=== PATIENT | female | born 1950 | race Caucasian/White ===

== ENCOUNTER 2023-10-05 10:46 | Emergency (ER) | payer OTHER, MEDICARE, SELFPAY ==
[2023-10-05] VITALS (7 sets, daily range): BP systolic 150–182; BP diastolic 73–107; PULSE 55–65; RESP 12–18; TEMP 36.4; O2SAT 98–100; BMI 22.8
[2023-10-05] MEDS: predniSONE 20 MG TABLET 40 MG PO (11:41)
--- NOTE | 2023-10-05 13:27 | ED.ALLEREA ---
HPI - Allergic Reaction General Chief complaint: Allergic Reaction Stated complaint: allergic reaction Time Seen by Provider: 10/05/23 11:33 Source: patient Mode of arrival: Ambulatory History of Present Illness HPI narrative: Patient 73-year-old female history of allergic reaction presenting today with reaction. She states that this morning she woke up and had some difficulty swallowing felt like the left side of her face was swollen. She says this happened to her once before she took Benadryl and it got better. She took Benadryl and it started to improve however since she was having some trouble breathing she decided to come in for evaluation. He has no rash chest pain or difficulty breathing. She has since had prednisone here in the ED and now feels 100% better. She has not on an SARA inhibitor. She does take metoprolol for heart palpitations. Related Data Previous Rx's Medication Instructions Recorded epinephrine 0.3 mg/0.3 mL 0.3 mg (0.3 mL) IM Q5-15M PRN 10/05/23 injection, auto-injector anaphylaxis #2 ea Allergies Allergy/AdvReac Type Severity Reaction Status Date / Time No Known Drug Allergies Allergy Verified 10/05/23 11:13 Patient History Social History Smoking Status: Never smoker Smoking Status: Never smoker alcohol intake frequency: 0-2 drinks per day Alcohol type: hard liquor Substance Use Type: does not use Exam Initial Vital Signs Initial Vital Signs: Vital Signs Temperature 97.6 F 10/05/23 11:08 Pulse Rate 65 10/05/23 11:08 Respiratory Rate 18 10/05/23 11:08 Blood Pressure 170/107 H 10/05/23 11:08 Pulse Oximetry 99 10/05/23 11:08 Oxygen Delivery Method Room Air 10/05/23 11:08 GENERAL: Alert pleasant 73-year-old female and in no acute distress. HEENT: Head atraumatic,EOMI, pupils reactive, no evidence of angioedema tongue swelling or lip swelling CARDIOVASCULAR: Regular rate and rhythm without murmurs, rubs or gallops. RESPIRATORY: Breath sounds equal bilaterally, no wheezes rales or rhonchi. EXTREMITIES: Normal range of motion, no clubbing or edema. Neurovascularly intact NEUROLOGICAL: Alert and oriented x4.Normal gait and speech. SKIN: Warm, dry, no laceration, no petechiae, no rashes or lesions. Course Orders Ordered: Discontinued Medications Prednisone (Prednisone 20 Mg Tablet) 40 mg PO NOW ONE Stop: 10/05/23 11:34 Last Admin: 10/05/23 11:41 Dose: 40 mg Documented By: BERENICE Vital Signs Vital signs: Vital Signs - 8 hr 10/05/23 11:08 10/05/23 11:33 10/05/23 11:35 Temperature 97.6 F Pulse Rate 65 60 55 L Respiratory Rate 18 12 12 Blood Pressure 170/107 H Pulse Oximetry 99 98 100 Oxygen Delivery Method Room Air 10/05/23 11:35 10/05/23 12:00 10/05/23 12:00 Temperature Pulse Rate 55 L Respiratory Rate 14 Blood Pressure 153/73 H 150/75 H Pulse Oximetry 98 Oxygen Delivery Method 10/05/23 12:30 10/05/23 12:32 10/05/23 12:32 Temperature Pulse Rate 61 56 L Respiratory Rate Blood Pressure 159/86 H Pulse Oximetry 99 Oxygen Delivery Method 10/05/23 13:50 Temperature Pulse Rate 61 Respiratory Rate 12 Blood Pressure 182/84 H Pulse Oximetry 100 Oxygen Delivery Method Room Air MDM - Allergic Reaction MDM Narrative Medical decision making narrative: Patient 73-year-old female presents today with facial swelling. She has not on an SARA inhibitor no evidence of angioedema. Her symptoms actually improve with Benadryl at home and then a dose of prednisone here in the ED. She was here for a couple of hours and symptoms have completely resolved. Discussed with her epinephrine pen and further allergy testing. Discharge Plan Departure Patient Disposition: Home Clinical Impression: Allergic reaction Instructions: DI for Anaphylaxis Activity Restrictions/Additional Instructions: *You have been diagnosed with allergic reaction *What to do: At this time I do recommend that you have further allergy testing discuss with your primary care provider *Continue to take medications as directed EpiPen use as directed if needed for difficulty swallowing or breathing Benadryl 25-50 mg if needed for itching or allergic reaction *Follow up with your primary care provider in 2-3 days or call [phone] *Return to ER if you should have facial swelling difficulty breathing swallowing or any new, worsening or concerning symptoms Prescriptions: New epinephrine 0.3 mg/0.3 mL auto-injector 0.3 mg IM Q5-15M PRN (Reason: anaphylaxis) Qty: 2 0RF Rx Instructions: do not exceed 3 doses per episode Stand Alone Forms: Patient Portal/API
== END 2023-10-05 13:53 | disposition home or self-care (01) ==
PROVIDERS: Emergency Provider Emergency Medicine
DX: R22.0 Localized swelling, mass and lump, head (principal); T78.40XA Allergy, unspecified, initial encounter; R13.10 Dysphagia, unspecified
CPT/HCPCS: 99283

== ENCOUNTER 2024-09-21 08:21 | Emergency (ER) | payer MEDICARE, BC, SELFPAY ==
[2024-09-21 08:26] VITALS: BP 164/77; PULSE 62; O2SAT 98
[2024-09-21 08:30] VITALS: PULSE 64; RESP 15; TEMP 36.5; O2SAT 96; BMI 23.6
--- NOTE | 2024-09-21 08:37 | ED.EXTPRO ---
HPI - Extremity Problem General Chief complaint: Extremity Problem,Nontraumatic Stated complaint: Left leg pain x 3 weeks Time Seen by Provider: 09/21/24 08:32 Source: patient Mode of arrival: Ambulatory History of Present Illness HPI Narrative: Patient here with . Complains of posterior left knee superior calf pain for the past 2 weeks. Patient has been doing a lot of walking on the boat ramp and boat dock, preparing their boat. No fall or injury. Has baseline neuropathy to the legs she states which is not new. Denies denies any back pain. No prior history of blood clots in legs or lungs. No shortness of breath no chest pain. Knee to toes exposed Related Data Previous Rx's ?Medication ?Instructions ?Recorded epinephrine 0.3 mg/0.3 mL 0.3 mg (0.3 mL) IM Q5-15M PRN 10/05/23 injection, auto-injector anaphylaxis #2 ea Allergies Allergy/AdvReac Type Severity Reaction Status Date / Time No Known Drug Allergies Allergy Verified 09/21/24 08:30 Review of Systems Review of Systems Narrative: GENERAL: Negative chills, fatigue, malaise, fever, sweats. HEENT: Negative sinus pain, ear pain, sore throat RESPIRATORY: Negative dyspnea, cough CARDIOVASCULAR: Negative chest pain, palpitations GASTROINTESTINAL: Negative vomiting, nausea, abdominal pain : Negative dysuria, frequency, hematuria MUSCULOSKELETAL: Positive muscle or bony pain SKIN: Negative rash, skin lesions NEUROLOGIC: Negative weakness, numbness ROS Unobtainable: All systems reviewed & are unremarkable except as noted in HPI and below Patient History alcohol intake frequency: 0-2 drinks per day Alcohol type: hard liquor Exam Narrative Exam Narrative: GENERAL: in no distress, not toxic not dyspneic HEAD: Normocephalic. EYES: Pupils equal round EXTREMITIES: No gross deformities. Examination left lower extremity. Left calf grossly symmetric to the right calf. No erythema edema induration. Mild tenderness to the superior portion of the left calf. No palpable cords. There is no knee pain or laxity with anterior posterior medial lateral rotational stress of the left leg. Foot is warm soft pink strong pedal pulse brisk cap refills light touch intact to toes. Strong ankle flexion-extension. Patient able to fully extend knee and and flex. Negative Homans test negative Peterson test. BACK: No flank tenderness. No midline tenderness or step-off of the lumbar spine. No tenderness of the paralumbar muscles. Able to lean forward and back and do side bends without any back pain. No radiating pain to the leg. NEURO: AOx4. Clear speech SKIN: Warm and dry PSYCH: Not anxious, is cooperative Initial Vital Signs Initial Vital Signs: Vital Signs Pulse Rate 62 09/21/24 08:26 Blood Pressure 164/77 H 09/21/24 08:26 Pulse Oximetry 98 09/21/24 08:26 Course Orders Ordered: ED Orders 09/21/24 08:36 US periph venous low extrem lt Stat XR knee LT 3V Stat Vital Signs Vital signs: Vital Signs - 8 hr 09/21/24 08:26 09/21/24 08:26 09/21/24 08:30 Temperature 97.7 F Pulse Rate 62 64 Respiratory Rate 15 Blood Pressure 164/77 H Pulse Oximetry 98 96 Oxygen Delivery Method Room Air 09/21/24 09:50 09/21/24 09:51 09/21/24 09:51 Temperature Pulse Rate 65 60 Respiratory Rate Blood Pressure 182/92 H Pulse Oximetry 92 100 Oxygen Delivery Method MDM - Extremity (Nontraumatic) Imaging Data Extremity x-ray #1: Radiologist's Impression: [address] [address] XRay Report Signed Patient: Danielle Pratt MR#: [id number] : 1950 Acct:[id number] Age/Sex: 74 / F Date of Service: 09/21/24 Loc: ED Accession Number: [id number] Procedure: XR knee LT 3V Ordering Provider: Noble aLngley MD PROCEDURE: XR KNEE LT 3V INDICATIONS: Pain/swelling TECHNIQUE: 3 views of the knee were acquired. COMPARISON: None. FINDINGS: Bones: No fractures or dislocations. 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 No significant patellar subluxation. Radiolucency involving posterior medial aspect of patella concerning for subcortical cyst formation versus osteochondral lesions in this area. Soft tissues: Moderate suprapatellar joint effusion is seen. No suspicious soft tissue calcifications. IMPRESSION: Moderate suprapatellar joint effusion. No definite acute left knee fracture or dislocation. [id number] tricompartmental osteoarthritis. Subcortical cystic changes versus osteochondral injury involving posterior medial aspect of patella suggest clinical correlation for focal pain in this region. Dictated by: Isaías Parr M.D. on 09/21/2024 at 8:54 Approved by: Isaías Parr M.D. on 09/21/2024 at 8:59 US - DVT: Radiologist's Impression: [address] [address] Ultrasound Report Signed Patient: Danielle Pratt MR#: [id number] : 1950 Acct:[id number] Age/Sex: 74 / F Date of Service: 09/21/24 Loc: ED Accession Number: [id number] Procedure: US perip venous low extrem lt Ordering Provider: Noble Langley MD PROCEDURE: US PERIP VENOUS LOW EXTREM LT INDICATIONS: PAIN/SWELLING TECHNIQUE: Real-time imaging, as well as color and pulse Doppler interrogation, were performed of the lower extremity deep veins from the inguinal ligament to the popliteal fossa, with documentation of the visualized calf veins. COMPARISON: None. FINDINGS: The common femoral, femoral, popliteal, and the visualized calf veins are normally compressible, and free of intraluminal thrombus. Color and pulse Doppler demonstrate normal phasic intraluminal flow. There is normal augmentation response to distal compression maneuver. Irregular contoured cystic structure in left popliteal fossa is seen measures 11.8 x 6.9 x 2.5 cm in size with fluid extending from popliteal fossa to the proximal left calf lesion. IMPRESSION: 1. No evidence of DVT in visualized left lower extremity veins. 2. Likely ruptured Sinclair's cyst as above. Dictated by: Isaías Parr M.D. on 09/21/2024 at 9:38 Approved by: Isaías Parr M.D. on 09/21/2024 at 9:42 [facility] Narrative Medical decision making narrative: Patient here with . Complains of posterior left knee superior calf pain for the past 2 weeks. Patient has been doing a lot of walking on the boat ramp and boat dock, preparing their boat. No fall or injury. Has baseline neuropathy to the legs she states which is not new. Denies denies any back pain. No prior history of blood clots in legs or lungs. No shortness of breath no chest pain. Knee to toes exposed After history and exam, exam is reassuring. X-ray left knee and ultrasound left leg ordered. Pain is controlled. [facility] Medical records reviewed: No recent visit for this complaint Differential considered: Includes but not limited to DVT SVT tendonitis knee strain Imaging studies independently reviewed: X-ray left knee, ultrasound left leg, x-ray left knee no acute finding, ultrasound left leg no acute finding Consultations: None indicated at this time Re-evaluations: 9:47 a.m.. Updated patient and results. Possibly ruptured Sinclair's cyst on ultrasound seen. This is self-limiting. They are reassuring. Referral for Orthopedics provided. Return precautions reviewed. They desire discharge home. Blood pressure noted at discharge. She states she usually has blood pressure systolic 130s, however she has been taking ibuprofen and this can elevate her blood pressure. She will have it rechecked as she will discontinue ibuprofen. They are from [place]. They will see family doctor when they return home. No start a blood pressure medication at this time as blood pressure may be related to ibuprofen use. She will take Tylenol. They desire discharge home. Discussion: Appropriate for discharge home exam is reassuring. Return precautions reviewed with patient. Nontoxic at discharge. Pain is controlled. They desire discharge home. Diagnosis: Knee strain, Sinclair cyst Discharge Plan Departure Patient Disposition: Home Clinical Impression: Strain of left knee Qualifiers: Encounter type: initial encounter Qualified Code(s): S86.912A - Strain of unspecified muscle(s) and tendon(s) at lower leg level, left leg, initial encounter Sinclair's cyst of knee Qualifiers: Laterality: left Qualified Code(s): M71.22 - Synovial cyst of popliteal space [Sinclair], left knee Instructions: DI for Sinclair Cyst, DI for Knee Pain Activity Restrictions/Additional Instructions: Your exam and imaging studies are reassuring. Please do call provided orthopedic office for follow up regarding your knee pain. You likely strained your knee from recent activity you have had working on the boat. May continue Tylenol or ibuprofen for pain. Return if worse if any questions or concerns Prescriptions: No Action epinephrine 0.3 mg/0.3 mL auto-injector 0.3 mg IM Q5-15M PRN (Reason: anaphylaxis) Qty: 2 0RF Rx Instructions: do not exceed 3 doses per episode Referrals: Soumya Doty DO [Physician, Orthopedic Surgery] Stand Alone Forms: Patient Portal/API
[2024-09-21 09:50] VITALS: PULSE 65; O2SAT 92
[2024-09-21 09:51] VITALS: BP 182/92; PULSE 60; O2SAT 100
== END 2024-09-21 09:56 | disposition home or self-care (01) ==
PROVIDERS: Emergency Provider Emergency Medicine
DX: S86.912A Strain of unspecified muscle(s) and tendon(s) at lower leg level, left leg, initial encounter (principal); M71.22 Synovial cyst of popliteal space [Baker], left knee
CPT/HCPCS: 73562; 93971; 99281; 99283